=== PATIENT | male | born 1985 | race Caucasian/White ===

== ENCOUNTER 2016-08-31 19:29 | Emergency (ER) | payer OTHER | END 2016-08-31 21:38 | disposition home or self-care (01) | LOC: ER 19:29 | DX: L02.413 Cutaneous abscess of right upper limb (principal); L03.113 Cellulitis of right upper limb; E10.9 Type 1 diabetes mellitus without complications ==

== ENCOUNTER 2016-09-02 20:32 | Emergency (ER) | payer OTHER | END 2016-09-02 21:15 | disposition home or self-care (01) | LOC: ER 20:32 | DX: Z48.01 Encounter for change or removal of surgical wound dressing (principal); E10.9 Type 1 diabetes mellitus without complications; F17.210 Nicotine dependence, cigarettes, uncomplicated; Z79.4 Long term (current) use of insulin ==

== ENCOUNTER 2016-09-06 02:09 | Emergency (ER) | payer OTHER | END 2016-09-06 03:00 | disposition home or self-care (01) | LOC: ER 02:09 | DX: I82.612 Acute embolism and thrombosis of superficial veins of left upper extremity (principal); E10.9 Type 1 diabetes mellitus without complications; F17.298 Nicotine dependence, other tobacco product, with other nicotine-induced disorders; Z23 Encounter for immunization | CPT/HCPCS: 90471 ==